=== PATIENT | male | born 1970 | race Caucasian/White ===

== ENCOUNTER 2019-02-17 03:40 | Emergency (ER) | payer MEDICAID ==
[~2019-02-17] VITALS: Ht 167.6 cm; Wt 91.0 kg
[2019-02-17 03:58] VITALS: BP 121/52
== END 2019-02-17 10:25 | disposition left against medical advice (07) ==
LOC: ER 05:23
DX: R11.2 Nausea with vomiting, unspecified (principal); Z53.21 Procedure and treatment not carried out due to patient leaving prior to being seen by health care provider

== ENCOUNTER 2022-11-13 22:27 | Emergency (ER) | payer MEDICAID ==
[~2022-11-13] VITALS: Ht 162.6 cm; Wt 82.0 kg
[2022-11-13 22:34] VITALS: O2SAT 98
[2022-11-14] MEDS ORDERED: BACITRACIN ZINC OINT UDPKT TOP ONE (02:15)
[2022-11-14] MEDS ORDERED: LIDOCAINE HCL/PF 1% 10 MG/ML 5ML VIAL INFIL ONE (02:15)
[2022-11-14] MEDS ORDERED: AMOX1TAB16 MT (02:42)
[2022-11-14 03:00] VITALS: BP 120/63; PULSE 74; RESP 18; TEMP 98.8
== END 2022-11-14 03:14 | disposition home or self-care (01) ==
LOC: ER 22:44
DX: M79.645 Pain in left finger(s) (principal)
CPT/HCPCS: 99283; 10060; J3490

== ENCOUNTER 2023-05-06 00:48 | Emergency (ER) | payer MEDICAID, OTHER ==
[~2023-05-06] VITALS: Ht 170.2 cm; Wt 102.0 kg
[~2023-05-06 00:48] MED LIST: AMOX1TAB16 MT
[2023-05-06 00:53] VITALS: BP 136/86; PULSE 88; RESP 18; TEMP 98.2; O2SAT 98
[2023-05-06] MEDS ORDERED: ACETAMINOPHEN 325MG TABLET PO ONE (01:00)
[2023-05-06] MEDS ORDERED: ACET-2708 MT (03:10)
== END 2023-05-06 01:00 | disposition home or self-care (01) ==
LOC: ER 00:48
DX: S83.92XA Sprain of unspecified site of left knee, initial encounter (principal); Z00.00 Encounter for general adult medical examination without abnormal findings; Y04.0XXA Assault by unarmed brawl or fight, initial encounter; Y93.89 Activity, other specified; Y92.89 Other specified places as the place of occurrence of the external cause; Y99.8 Other external cause status
CPT/HCPCS: 73562; 99283

== ENCOUNTER 2023-10-01 00:22 | Emergency (ER) | payer MEDICAID, OTHER ==
[~2023-10-01] VITALS: Ht 165.1 cm; Wt 87.0 kg
[~2023-10-01 00:22] MED LIST changes: +ACET-2708 MT
[2023-10-01 00:25] VITALS: BP 123/83; PULSE 80; RESP 20; TEMP 98.6; O2SAT 98
== END 2023-10-01 01:49 | disposition home or self-care (01) ==
LOC: ER 00:22
DX: S61.101A Unspecified open wound of right thumb with damage to nail, initial encounter (principal); X58.XXXA Exposure to other specified factors, initial encounter; Y93.89 Activity, other specified; Y92.89 Other specified places as the place of occurrence of the external cause; Y99.8 Other external cause status
CPT/HCPCS: 11730; 99284

== ENCOUNTER 2023-10-19 00:14 | Emergency (ER) | payer MEDICAID ==
[~2023-10-19] VITALS: Ht 177.8 cm; Wt 90.0 kg
[2023-10-19 00:17] VITALS: O2SAT 99
[2023-10-19] MEDS: ACETAMINOPHEN 325MG TABLET PO ONE (00:45)
[2023-10-19] MEDS ORDERED: IBUP-2029 MT (02:01)
[2023-10-19 02:20] VITALS: BP 140/80; PULSE 71; RESP 18; TEMP 37.16964; O2SAT 100
[2023-10-19] MEDS: KETOROLAC 30MG/ML VIAL IM ONE (02:20)
== END 2023-10-19 02:50 | disposition home or self-care (01) ==
LOC: ER 00:14
DX: M25.562 Pain in left knee (principal); Z79.899 Other long term (current) drug therapy
CPT/HCPCS: 99283; 73562; 96372; J1885; 29505